=== PATIENT | male | born 1940 | race Asian ===

== ENCOUNTER 2021-09-13 15:08 | Inpatient (IN) | payer OTHER ==
[2021-09-13 18:21] LABS: BASO % 0.8 % (0-2.0); EOS % 2.9 % (0-4.5); HEMATOCRIT 26.2 % (35.4-49); LYMPH % 28.6 % (8-40); MCHC 30.7 g/dl (32.0-35.9); MEAN CELL VOLUME 64.9 fl (80-96); MEAN PLT VOLUME 7.4 fl (7.5-11.1); MONO % 8.5 % (3.8-10.2); NEUT % 59.2 % (42.8-82.8); PLATELET COUNT 243 10^3/uL (134-434); RBC 4.04 M/mm3 (4.00-5.60); RDW 18.4 % (11.9-15.9); WHITE BLOOD COUNT 4.6 K/mm3 (4.0-10.0)
[2021-09-13 18:27] LABS: URINE APPEARANCE CLEAR; URINE BILIRUBIN NEGATIVE (NEGATIVE); URINE COLOR DK YELLOW; URINE GLUCOSE (UA) 3+ (NEGATIVE); URINE KETONE NEGATIVE (NEGATIVE); URINE LEUK ESTERASE NEGATIVE (NEGATIVE); URINE NITRITE NEGATIVE (NEGATIVE); URINE PROTEIN NEGATIVE (NEGATIVE); URINE UROBILINOGEN 0.2 mg/dL (0.2-1.0)
[2021-09-13 18:34] LABS: MCH 19.9 pg (25.7-33.7)
[2021-09-13 18:38] LABS: ALBUMIN 3.4 g/dl (3.4-5.0); BLOOD UREA NITROGEN 14.9 mg/dL (7-18)
[2021-09-13 18:39] LABS: MAGNESIUM 2.2 mg/dL (1.8-2.4)
[2021-09-13 18:41] LABS: BILIRUBIN,TOTAL 0.2 mg/dL (0.2-1); TOT PROT 6.7 g/dl (6.4-8.2)
[2021-09-13 18:42] LABS: PHOSPHOROUS 4.2 mg/dL (2.5-4.9)
[2021-09-13 18:46] LABS: N-TERMINAL BNP 98.6 pg/ml (5-450)
[2021-09-13 19:27] LABS: ANISOCYTOSIS 2+; MACROCYTOSIS 0
[2021-09-13] MEDS ORDERED: MELATONIN 5 MG TABLETS PO ONE (21:44)
[2021-09-13] MEDS ORDERED: PANTOPRAZOLE SODIUM 40 MG/100 ML BAG IVPB ONE (21:54)
[2021-09-13] MEDS ORDERED: MELATONIN 5 MG TABLETS ONE (21:54)
[2021-09-13] MEDS ORDERED: PANTOPRAZOLE SODIUM 40 MG VIAL IVPUSH SCH (22:00)
[2021-09-13 22:30] LABS: IRON SERUM 191 ug/dL (50-175); TOTAL IRON BINDING CAPACITY 472 ug/dL (250-450)
[2021-09-13] MEDS: INSULIN SLIDING SCALE (NOVOLOG) 1 VIAL SQ SCH (22:36)
[2021-09-14 01:06] VITALS: BMI 22.3
[2021-09-14] MEDS: LEVOTHYROXINE NA 100 MCG TABLET (FP) PO SCH (06:29)
[2021-09-14] MEDS: INSULIN SLIDING SCALE (NOVOLOG) 1 VIAL SQ SCH ×4 (06:30→21:43)
[2021-09-14 09:25] LABS: HEMATOCRIT 25.3 % (35.4-49); MCHC 31.6 g/dl (32.0-35.9); MEAN CELL VOLUME 62.6 fl (80-96); MEAN PLT VOLUME 6.7 fl (7.5-11.1); PLATELET COUNT 236 10^3/uL (134-434); RBC 4.04 M/mm3 (4.00-5.60); RDW 18.5 % (11.9-15.9); WHITE BLOOD COUNT 3.6 K/mm3 (4.0-10.0)
[2021-09-14 09:30] LABS: MCH 19.8 pg (25.7-33.7)
[2021-09-14 09:48] LABS: CHLORIDE 107 mmol/L (98-107); SODIUM 140 mmol/L (136-145)
[2021-09-14 09:51] LABS: ALBUMIN 3.1 g/dl (3.4-5.0); ANION GAP 6 MMOL/L (8-16); BLOOD UREA NITROGEN 11.1 mg/dL (7-18); CALCIUM 8.7 mg/dL (8.5-10.1); CO2 27 mmol/L (21-32); GLUCOSE,RANDOM 161 mg/dL (74-106); MAGNESIUM 2.5 mg/dL (1.8-2.4)
[2021-09-14 09:54] LABS: CHOLESTEROL 169 mg/dL (50-200); CREATININE 0.8 mg/dL (0.55-1.3); PHOSPHOROUS 4.7 mg/dL (2.5-4.9); SGOT/AST 10 U/L (15-37); SGPT/ALT 11 U/L (13-61); TRIGLYCERIDES 105 mg/dL (0-150)
[2021-09-14 09:56] LABS: BILIRUBIN,TOTAL 0.2 mg/dL (0.2-1); HDL CHOLESTEROL 62 mg/dL (40-60); TOT PROT 6.1 g/dl (6.4-8.2)
[2021-09-14 09:57] LABS: ALK PHOS 105 U/L (45-117)
[2021-09-14] MEDS: FOLIC ACID 1 MG TABLET (FP) PO SCH (10:00)
[2021-09-14] MEDS: ENOXAPARIN NA (PORCINE) 40 MG/0.4 ML DISP.SYRIN SQ SCH (10:00)
[2021-09-14] MEDS: ASPIRIN COATED 81 MG TABLET.EC PO SCH (10:00)
[2021-09-14] MEDS: PANTOPRAZOLE 40 MG TABLET PO SCH (10:00)
[2021-09-14] MEDS: PARoxetine HCL 20 MG TABLET PO SCH (10:01)
[2021-09-14 10:28] LABS: LDL CHOLESTEROL (ONLY SJRH) 81 mg/dL (5-100)
[2021-09-14 13:47] LABS: LDH 133 U/L (87-246)
[2021-09-14 14:00] LABS: IRON SERUM 18 ug/dL (50-175)
[2021-09-14 14:02] LABS: TOTAL IRON BINDING CAPACITY 414 ug/dL (250-450)
[2021-09-14] MEDS ORDERED: IRON SUCROSE INJECTION 200 MG in SODIUM CHLORIDE 90 ML IVPB ONE (19:00)
[2021-09-14] MEDS: TAMSULOSIN HCL 0.4 MG CAP PO SCH (21:41)
[2021-09-14] MEDS: ATORVASTATIN CA 10 MG TABLET (FP) PO SCH (21:41)
[2021-09-15] MEDS: INSULIN SLIDING SCALE (NOVOLOG) 1 VIAL SQ SCH ×4 (06:02→21:29)
[2021-09-15] MEDS: LEVOTHYROXINE NA 100 MCG TABLET (FP) PO SCH (06:02)
[2021-09-15] MEDS: ASPIRIN COATED 81 MG TABLET.EC PO SCH (09:04)
[2021-09-15] MEDS: ENOXAPARIN NA (PORCINE) 40 MG/0.4 ML DISP.SYRIN SQ SCH (09:04)
[2021-09-15] MEDS: FOLIC ACID 1 MG TABLET (FP) PO SCH (09:04)
[2021-09-15] MEDS: PARoxetine HCL 20 MG TABLET PO SCH (09:05)
[2021-09-15] MEDS: PANTOPRAZOLE 40 MG TABLET PO SCH (09:05)
[2021-09-15 09:54] LABS: HEMATOCRIT 26.5 % (35.4-49); HEMOGLOBIN 8.1 GM/dL (11.7-16.9); MCHC 30.7 g/dl (32.0-35.9); MEAN CELL VOLUME 65.3 fl (80-96); MEAN PLT VOLUME 7.2 fl (7.5-11.1); PLATELET COUNT 238 10^3/uL (134-434); RBC 4.06 M/mm3 (4.00-5.60); RDW 18.7 % (11.9-15.9); WHITE BLOOD COUNT 3.9 K/mm3 (4.0-10.0)
[2021-09-15 10:23] LABS: CALCIUM 8.5 mg/dL (8.5-10.1)
[2021-09-15 10:24] LABS: BLOOD UREA NITROGEN 12.5 mg/dL (7-18)
[2021-09-15 10:27] LABS: CREATININE 0.9 mg/dL (0.55-1.3)
[2021-09-15 10:29] LABS: BILIRUBIN,TOTAL 0.5 mg/dL (0.2-1); TOT PROT 6.1 g/dl (6.4-8.2)
[2021-09-15] MEDS ORDERED: IRON SUCROSE INJECTION 200 MG in SODIUM CHLORIDE 90 ML IVPB ONE (11:37)
[2021-09-15] MEDS: ATORVASTATIN CA 10 MG TABLET (FP) PO SCH (21:26)
[2021-09-15] MEDS: TAMSULOSIN HCL 0.4 MG CAP PO SCH (21:26)
[2021-09-16] MEDS: LEVOTHYROXINE NA 100 MCG TABLET (FP) PO SCH (06:09)
[2021-09-16] MEDS: INSULIN SLIDING SCALE (NOVOLOG) 1 VIAL SQ SCH ×4 (06:50→21:29)
[2021-09-16 08:56] LABS: BASO % 0.9 % (0-2.0); EOS % 3.1 % (0-4.5); HEMATOCRIT 25.2 % (35.4-49); HEMOGLOBIN 7.9 GM/dL (11.7-16.9); LYMPH % 30.9 % (8-40); MCH 20.2 pg (25.7-33.7); MCHC 31.2 g/dl (32.0-35.9); MEAN CELL VOLUME 64.6 fl (80-96); MEAN PLT VOLUME 7.1 fl (7.5-11.1); MONO % 9.7 % (3.8-10.2); NEUT % 55.4 % (42.8-82.8); PLATELET COUNT 220 10^3/uL (134-434); RBC 3.89 M/mm3 (4.00-5.60); RDW 18.5 % (11.9-15.9); WHITE BLOOD COUNT 4.2 K/mm3 (4.0-10.0)
[2021-09-16 09:19] LABS: CALCIUM 8.5 mg/dL (8.5-10.1)
[2021-09-16 09:20] LABS: BLOOD UREA NITROGEN 12.8 mg/dL (7-18)
[2021-09-16 09:23] LABS: CREATININE 0.7 mg/dL (0.55-1.3)
[2021-09-16] MEDS: PARoxetine HCL 20 MG TABLET PO SCH (10:46)
[2021-09-16] MEDS: FOLIC ACID 1 MG TABLET (FP) PO SCH (10:46)
[2021-09-16] MEDS: ASPIRIN COATED 81 MG TABLET.EC PO SCH (10:46)
[2021-09-16] MEDS: ENOXAPARIN NA (PORCINE) 40 MG/0.4 ML DISP.SYRIN SQ SCH (10:46)
[2021-09-16] MEDS: PANTOPRAZOLE 40 MG TABLET PO SCH (10:46)
[2021-09-16] MEDS ORDERED: INSULIN (NOVOLOG) ASPART 100 UNITS/ML 10ML VIAL ONE (11:02)
[2021-09-16] MEDS: ATORVASTATIN CA 10 MG TABLET (FP) PO SCH (21:28)
[2021-09-16] MEDS: TAMSULOSIN HCL 0.4 MG CAP PO SCH (21:28)
[2021-09-17] MEDS: LEVOTHYROXINE NA 100 MCG TABLET (FP) PO SCH (06:32)
[2021-09-17] MEDS: INSULIN SLIDING SCALE (NOVOLOG) 1 VIAL SQ SCH ×4 (06:33→21:24)
[2021-09-17] MEDS ORDERED: IRON SUCROSE INJECTION 200 MG in SODIUM CHLORIDE 90 ML IVPB ONE (08:00)
[2021-09-17] MEDS ORDERED: PT OWN MED DRAWER 7, Y5N ONE (10:24)
[2021-09-17] MEDS: ASPIRIN COATED 81 MG TABLET.EC PO SCH (10:31)
[2021-09-17] MEDS: PANTOPRAZOLE 40 MG TABLET PO SCH (10:31)
[2021-09-17] MEDS: FOLIC ACID 1 MG TABLET (FP) PO SCH (10:31)
[2021-09-17] MEDS: PARoxetine HCL 20 MG TABLET PO SCH (10:31)
[2021-09-17] MEDS: ENOXAPARIN NA (PORCINE) 40 MG/0.4 ML DISP.SYRIN SQ SCH (10:32)
[2021-09-17] MEDS ORDERED: INSULIN (NOVOLOG) ASPART 100 UNITS/ML 10ML VIAL ONE (20:34)
[2021-09-17] MEDS: TAMSULOSIN HCL 0.4 MG CAP PO SCH (21:21)
[2021-09-17] MEDS: ATORVASTATIN CA 10 MG TABLET (FP) PO SCH (21:21)
[2021-09-18] MEDS: INSULIN SLIDING SCALE (NOVOLOG) 1 VIAL SQ SCH ×2 (06:08→12:35)
[2021-09-18] MEDS: LEVOTHYROXINE NA 100 MCG TABLET (FP) PO SCH (06:09)
[2021-09-18 06:41] VITALS: BP 135/66; PULSE 90; TEMP 98.7
[2021-09-18] MEDS ORDERED: PT OWN MED DRAWER 7, Y5N ONE (09:57)
[2021-09-18] MEDS: PANTOPRAZOLE 40 MG TABLET PO SCH (10:02)
[2021-09-18] MEDS: ENOXAPARIN NA (PORCINE) 40 MG/0.4 ML DISP.SYRIN SQ SCH (10:02)
[2021-09-18] MEDS: ASPIRIN COATED 81 MG TABLET.EC PO SCH (10:02)
[2021-09-18] MEDS: FOLIC ACID 1 MG TABLET (FP) PO SCH (10:02)
[2021-09-18] MEDS: PARoxetine HCL 20 MG TABLET PO SCH (10:02)
[2021-09-18 10:30] LABS: ALBUMIN 2.9 g/dl (3.4-5.0); BLOOD UREA NITROGEN 11.1 mg/dL (7-18); CALCIUM 8.9 mg/dL (8.5-10.1); MAGNESIUM 2.3 mg/dL (1.8-2.4)
[2021-09-18 12:05] LABS: BILIRUBIN,TOTAL 0.6 mg/dL (0.2-1); CREATININE 0.9 mg/dL (0.55-1.3); PHOSPHOROUS 2.9 mg/dL (2.5-4.9)
== END 2021-09-18 14:51 | disposition home health service (06) | DRG 812 ==
LOC: JER 15:08 → JERBED 20:59 → J8W 09-14 00:35
PROVIDERS: ADMIT Internal Medicine; ATTEND Internal Medicine
DX: D50.9 Iron deficiency anemia, unspecified (principal); I10 Essential (primary) hypertension; N40.0 Benign prostatic hyperplasia without lower urinary tract symptoms; E03.9 Hypothyroidism, unspecified; E78.5 Hyperlipidemia, unspecified; F17.210 Nicotine dependence, cigarettes, uncomplicated; M43.10 Spondylolisthesis, site unspecified; M41.9 Scoliosis, unspecified; E11.65 Type 2 diabetes mellitus with hyperglycemia; F41.9 Anxiety disorder, unspecified; W18.39XA Other fall on same level, initial encounter; Y92.098 Other place in other non-institutional residence as the place of occurrence of the external cause
CPT/HCPCS: 36415; 70450-TC; 71045-TC-FY; 72125-TC; 80048; 80053; 80061; 81003; 82272; 82550; 82728; 82962; 83036; 83540; 83550; 83615; 83735; 83880; 84100; 84443; 84484; 85025; 85027; 85045; 86850; 86900; 86901; 87086; 93005; 93010; 93880-TC; 97116-GP; 99285-25; C9803; J1756; U0003; U0005

== ENCOUNTER 2023-03-29 19:48 | Emergency (ER) | payer OTHER ==
[2023-03-29 19:54] VITALS: RESP 18; BMI 25.8
[2023-03-29] MEDS ORDERED: LIDOCAINE 5% TOPICAL PATCH TP ONE (20:07)
[2023-03-29] MEDS ORDERED: ACETAMINOPHEN 500 MG TABLET (FP) PO ONE (20:07)
[2023-03-29] MEDS ORDERED: LIDOCAINE 5% TOPICAL PATCH ONE (20:11)
[2023-03-29] MEDS ORDERED: ACETAMINOPHEN 325 MG TABLET (FP) ONE (20:11)
[2023-03-29] MEDS ORDERED: LIDOCAINE PATCH REMOVAL MC SCH (22:00)
[2023-03-30 01:34] VITALS: BP 168/66; PULSE 64; TEMP 97
== END 2023-03-30 02:39 | disposition home or self-care (01) ==
LOC: JER 19:48
DX: M54.50 Low back pain, unspecified (principal); Y30.XXXA Falling, jumping or pushed from a high place, undetermined intent, initial encounter; Y02.8XXA Assault by pushing or placing victim in front of other moving object, initial encounter
CPT/HCPCS: 70450-TC; 72125-TC; 72170-TC-FY; 99283-25

== ENCOUNTER 2023-10-11 07:51 | Inpatient (IN) | payer OTHER ==
[2023-10-11] MEDS ORDERED: ACETAMINOPHEN 1000 MG/100 ML BAG IVPB ONE (08:14)
[2023-10-11] MEDS ORDERED: SODIUM CHLORIDE 1,000 ML IV STA (08:17)
[2023-10-11] MEDS ORDERED: CEFTRIAXONE 1,000 MG in DEXTROSE 5%-WATER - 50 ML IVPB ONE (08:17)
[2023-10-11] MEDS ORDERED: CEFTRIAXONE 1 GM/50 ML BAG ONE (08:41)
[2023-10-11] MEDS ORDERED: ACETAMINOPHEN INJECTION 100 ML IVPB ONE (08:41)
[2023-10-11 08:46] LABS: VENOUS BASE EXCESS 0.9 mmol/L (-2-2); VENOUS O2 SATURATION 58.8 % (70-80); VENOUS PCO2 41.7 mmHg (38-52); VENOUS PH 7.407 (7.310-7.410)
[2023-10-11 08:48] LABS: BASO % 0.4 % (0-2.0); EOS % 0.3 % (0-4.5); HEMATOCRIT 37.1 % (35.4-49); HEMOGLOBIN 12.4 GM/dL (11.7-16.9); LYMPH % 8.2 % (8-40); MCH 28.6 pg (25.7-33.7); MCHC 33.5 g/dl (32.0-35.9); MEAN CELL VOLUME 85.4 fl (80-96); MEAN PLT VOLUME 7.5 fl (7.5-11.1); MONO % 1.6 % (3.8-10.2); NEUT % 89.5 % (42.8-82.8); PLATELET COUNT 198 10^3/uL (134-434); RBC 4.34 M/mm3 (4.00-5.60); RDW 13.5 % (11.9-15.9); WHITE BLOOD COUNT 6.5 K/mm3 (4.0-10.0)
[2023-10-11 09:01] LABS: INR 1.04 (0.83-1.09); PROTHROMBIN TIME (PATIENT) 12.1 SEC (9.7-13.0)
[2023-10-11 09:04] LABS: ACTIVATED PTT 25.7 SECONDS (25.2-36.5)
[2023-10-11 09:07] LABS: POTASSIUM 3.7 mmol/L (3.5-5.1)
[2023-10-11 09:09] LABS: ALBUMIN 3.6 g/dl (3.4-5.0); BLOOD UREA NITROGEN 8.3 mg/dL (7-18); CALCIUM 8.8 mg/dL (8.5-10.1)
[2023-10-11 09:10] LABS: EPI CELLS 3 /uL (0-25.1); HYALINE CASTS 0 /uL (0-3.1); URINE APPEARANCE CLEAR; URINE BACTERIA 0 /uL (0-1359); URINE BILIRUBIN NEGATIVE (NEGATIVE); URINE COLOR YELLOW; URINE GLUCOSE (UA) 1+ (NEGATIVE); URINE KETONE NEGATIVE (NEGATIVE); URINE LEUK ESTERASE NEGATIVE (NEGATIVE); URINE NITRITE NEGATIVE (NEGATIVE); URINE PROTEIN 1+ (NEGATIVE); URINE RBC 51 /uL (0-23.9); URINE UROBILINOGEN 0.2 mg/dL (0.2-1.0); URINE WBC 6 /uL (0-25.8)
[2023-10-11 09:14] LABS: BILIRUBIN,TOTAL 0.4 mg/dL (0.2-1); TOT PROT 6.9 g/dl (6.4-8.2)
[2023-10-11 09:26] LABS: LACTIC ACID 2.4 mmol/L (0.4-2.0)
[2023-10-11] MEDS ORDERED: LACTATED RINGERS SOLUTION 1000 ML INFUS.BAG IV ONE (09:36)
[2023-10-11] MEDS ORDERED: AZITHROMYCIN IVPB 500 MG in DEXTROSE 5%-WATER - 250 ML IVPB ONE (10:33)
[2023-10-11] MEDS ORDERED: ACETAMINOPHEN 500 MG TABLET (FP) PO PRN (10:58)
[2023-10-11] MEDS ORDERED: AZITHROMYCIN IVPB 500 MG/250 ML BAG IVPB ONE (11:04)
[2023-10-11 12:32] VITALS: BMI 22.2
[2023-10-11] MEDS: PANTOPRAZOLE 20 MG TABLET PO SCH (13:01)
[2023-10-11] MEDS: FOLIC ACID 1 MG TABLET (FP) PO SCH (13:01)
[2023-10-11] MEDS: INSULIN SLIDING SCALE (NOVOLOG) 1 VIAL SQ SCH (16:50)
[2023-10-11 17:01] LABS: LACTIC ACID 2.4 mmol/L (0.4-2.0)
[2023-10-11] MEDS ORDERED: SODIUM CHLORIDE 1,000 ML IV SCH (19:15)
[2023-10-11] MEDS: ATORVASTATIN CA 10 MG TABLET (FP) PO SCH (21:51)
[2023-10-11] MEDS: TAMSULOSIN HCL 0.4 MG CAP PO SCH (21:51)
[2023-10-11] MEDS: MAG HYDROX/AL HYDROX/SIMETH 30 ML UNIT-DOSE CUP PO SCH (21:52)
[2023-10-12] MEDS: LEVOTHYROXINE NA 100 MCG TABLET (FP) PO SCH (06:42)
[2023-10-12] MEDS: INSULIN SLIDING SCALE (NOVOLOG) 1 VIAL SQ SCH ×3 (06:43→16:54)
[2023-10-12 09:17] LABS: HEMATOCRIT 31.1 % (35.4-49); HEMOGLOBIN 10.2 GM/dL (11.7-16.9); MCH 28.4 pg (25.7-33.7); MCHC 32.8 g/dl (32.0-35.9); MEAN CELL VOLUME 86.7 fl (80-96); MEAN PLT VOLUME 8.2 fl (7.5-11.1); PLATELET COUNT 169 10^3/uL (134-434); RBC 3.58 M/mm3 (4.00-5.60); RDW 13.6 % (11.9-15.9); WHITE BLOOD COUNT 17.9 K/mm3 (4.0-10.0)
[2023-10-12 09:23] LABS: POTASSIUM 3.6 mmol/L (3.5-5.1)
[2023-10-12 09:30] LABS: BLOOD UREA NITROGEN 16.7 mg/dL (7-18)
[2023-10-12 09:33] LABS: CREATININE 0.9 mg/dL (0.55-1.3)
[2023-10-12] MEDS: ENOXAPARIN NA (PORCINE) 40 MG/0.4 ML DISP.SYRIN SQ SCH (10:19)
[2023-10-12] MEDS: MAG HYDROX/AL HYDROX/SIMETH 30 ML UNIT-DOSE CUP PO SCH ×2 (10:19→21:53)
[2023-10-12] MEDS: ESCITALOPRAM OXALATE 10 MG TABLET PO SCH (10:20)
[2023-10-12] MEDS: FOLIC ACID 1 MG TABLET (FP) PO SCH (10:20)
[2023-10-12] MEDS: ASPIRIN COATED 81 MG TABLET.EC PO SCH (10:20)
[2023-10-12] MEDS: PANTOPRAZOLE 20 MG TABLET PO SCH (10:20)
[2023-10-12] MEDS: CEFTRIAXONE 1 GM in DEXTROSE 5%-WATER - 50 ML IVPB SCH (10:21)
[2023-10-12 11:00] LABS: ANISOCYTOSIS 0; HELMET CELLS 0; HOWELL-JOLLY BODIES 0; MACROCYTOSIS 0; OVALOCYTE 0; ROULEAU 0; SICKELED CELLS 0; TARGET CELLS 0; TEAR DROP CELLS 0; TOXIC GRANULATION 0
[2023-10-12] MEDS: AZITHROMYCIN IVPB 500 MG/250 ML BAG IVPB SCH (11:04)
[2023-10-12] MEDS: ATORVASTATIN CA 10 MG TABLET (FP) PO SCH (21:53)
[2023-10-12] MEDS: TAMSULOSIN HCL 0.4 MG CAP PO SCH (21:53)
[2023-10-13] MEDS: LEVOTHYROXINE NA 100 MCG TABLET (FP) PO SCH (06:05)
[2023-10-13] MEDS: INSULIN SLIDING SCALE (NOVOLOG) 1 VIAL SQ SCH ×3 (06:05→17:12)
[2023-10-13] MEDS: PANTOPRAZOLE 20 MG TABLET PO SCH (09:19)
[2023-10-13] MEDS: AZITHROMYCIN IVPB 500 MG/250 ML BAG IVPB SCH (09:19)
[2023-10-13] MEDS: FOLIC ACID 1 MG TABLET (FP) PO SCH (09:19)
[2023-10-13] MEDS: ASPIRIN COATED 81 MG TABLET.EC PO SCH (09:19)
[2023-10-13] MEDS: CEFTRIAXONE 1 GM in DEXTROSE 5%-WATER - 50 ML IVPB SCH (09:19)
[2023-10-13] MEDS: MAG HYDROX/AL HYDROX/SIMETH 30 ML UNIT-DOSE CUP PO SCH ×2 (09:19→23:14)
[2023-10-13] MEDS: ENOXAPARIN NA (PORCINE) 40 MG/0.4 ML DISP.SYRIN SQ SCH (09:20)
[2023-10-13] MEDS: ESCITALOPRAM OXALATE 10 MG TABLET PO SCH (09:20)
[2023-10-13] MEDS ORDERED: ALBUTEROL SO4 HFA INHALER IH PRN (11:50)
[2023-10-13 13:16] LABS: BASO % 0.4 % (0-2.0); EOS % 0.9 % (0-4.5); HEMATOCRIT 34.2 % (35.4-49); HEMOGLOBIN 11.3 GM/dL (11.7-16.9); LYMPH % 13.6 % (8-40); MCH 28.1 pg (25.7-33.7); MEAN CELL VOLUME 85.4 fl (80-96); MEAN PLT VOLUME 8.1 fl (7.5-11.1); MONO % 2.4 % (3.8-10.2); NEUT % 82.7 % (42.8-82.8); PLATELET COUNT 178 10^3/uL (134-434); RDW 13.6 % (11.9-15.9); WHITE BLOOD COUNT 15.2 K/mm3 (4.0-10.0)
[2023-10-13 13:46] LABS: POTASSIUM 3.4 mmol/L (3.5-5.1)
[2023-10-13 13:48] LABS: CALCIUM 8.4 mg/dL (8.5-10.1)
[2023-10-13 13:50] LABS: BLOOD UREA NITROGEN 11.9 mg/dL (7-18)
[2023-10-13 13:52] LABS: CREATININE 0.8 mg/dL (0.55-1.3)
[2023-10-13 13:54] LABS: BILIRUBIN,TOTAL 0.4 mg/dL (0.2-1); TOT PROT 6.1 g/dl (6.4-8.2)
[2023-10-13 13:56] LABS: ALBUMIN 2.8 g/dl (3.4-5.0)
[2023-10-13] MEDS: ATORVASTATIN CA 10 MG TABLET (FP) PO SCH (23:14)
[2023-10-13] MEDS: TAMSULOSIN HCL 0.4 MG CAP PO SCH (23:14)
[2023-10-14] MEDS: INSULIN SLIDING SCALE (NOVOLOG) 1 VIAL SQ SCH ×2 (06:27→11:01)
[2023-10-14] MEDS: LEVOTHYROXINE NA 100 MCG TABLET (FP) PO SCH (06:29)
[2023-10-14 08:36] VITALS: RESP 18
[2023-10-14 09:18] LABS: BASO % 0.4 % (0-2.0); EOS % 1.2 % (0-4.5); HEMATOCRIT 31.7 % (35.4-49); HEMOGLOBIN 10.7 GM/dL (11.7-16.9); LYMPH % 18.9 % (8-40); MCH 28.5 pg (25.7-33.7); MCHC 33.8 g/dl (32.0-35.9); MEAN CELL VOLUME 84.3 fl (80-96); MEAN PLT VOLUME 8.2 fl (7.5-11.1); MONO % 4.8 % (3.8-10.2); NEUT % 74.7 % (42.8-82.8); PLATELET COUNT 184 10^3/uL (134-434); RBC 3.76 M/mm3 (4.00-5.60); RDW 13.1 % (11.9-15.9); WHITE BLOOD COUNT 9.7 K/mm3 (4.0-10.0)
[2023-10-14 09:21] LABS: POTASSIUM 3.5 mmol/L (3.5-5.1)
[2023-10-14 09:23] LABS: ALBUMIN 2.5 g/dl (3.4-5.0); BLOOD UREA NITROGEN 7.9 mg/dL (7-18); CALCIUM 7.7 mg/dL (8.5-10.1); MAGNESIUM 2.3 mg/dL (1.8-2.4)
[2023-10-14] MEDS: CEFTRIAXONE 1 GM in DEXTROSE 5%-WATER - 50 ML IVPB SCH (09:25)
[2023-10-14] MEDS: ENOXAPARIN NA (PORCINE) 40 MG/0.4 ML DISP.SYRIN SQ SCH (09:25)
[2023-10-14 09:26] LABS: PHOSPHOROUS 2.8 mg/dL (2.5-4.9)
[2023-10-14] MEDS: MAG HYDROX/AL HYDROX/SIMETH 30 ML UNIT-DOSE CUP PO SCH (09:26)
[2023-10-14] MEDS: FOLIC ACID 1 MG TABLET (FP) PO SCH (09:26)
[2023-10-14] MEDS: ESCITALOPRAM OXALATE 10 MG TABLET PO SCH (09:26)
[2023-10-14] MEDS: ASPIRIN COATED 81 MG TABLET.EC PO SCH (09:26)
[2023-10-14] MEDS: PANTOPRAZOLE 20 MG TABLET PO SCH (09:26)
[2023-10-14 09:27] LABS: TOT PROT 5.7 g/dl (6.4-8.2)
[2023-10-14 09:28] LABS: BILIRUBIN,TOTAL 0.5 mg/dL (0.2-1); CREATININE 0.7 mg/dL (0.55-1.3)
[2023-10-14] MEDS ORDERED: LIP BALM (CHAPSTICK) TP PRN (10:01)
[2023-10-14] MEDS: AZITHROMYCIN IVPB 500 MG/250 ML BAG IVPB SCH (11:06)
[2023-10-14] MEDS ORDERED: ZINC OXIDE 20% TOPICAL OINTMENT 30 GM TUBE TP SCH (11:45)
[2023-10-14] MEDS ORDERED: valACYclovir HCL 500 MG TABLET (FP) PO ONE (11:47)
[2023-10-14 15:25] VITALS: BP 134/87; PULSE 76; TEMP 99.2
== END 2023-10-14 16:58 | DRG 871 ==
LOC: JER 07:51 → JERBED 10:42 → J5S 11:36 → JERBED 10-12 07:47 → J5S 10-12 07:50
PROVIDERS: ADMIT Internal Medicine; ATTEND Internal Medicine
DX: A41.89 Other specified sepsis (principal); J13 Pneumonia due to Streptococcus pneumoniae; E87.20 Acidosis, unspecified; E78.5 Hyperlipidemia, unspecified; E11.9 Type 2 diabetes mellitus without complications; E03.9 Hypothyroidism, unspecified; I10 Essential (primary) hypertension; N40.0 Benign prostatic hyperplasia without lower urinary tract symptoms; R00.0 Tachycardia, unspecified; E86.0 Dehydration; K21.9 Gastro-esophageal reflux disease without esophagitis; D72.829 Elevated white blood cell count, unspecified; B00.1 Herpesviral vesicular dermatitis
CPT/HCPCS: 0241U-QW; 36415; 71045-TC-FY; 80048; 80053; 81003; 82803; 82962; 83605; 83735; 84100; 84484; 85025; 85610; 85730; 86850; 86900; 86901; 87040; 87086; 87899; 93005; 93010; 94761; 97116-GP; 97161-GP; 99285-25

== ENCOUNTER 2024-04-07 23:13 | Inpatient (IN) | payer OTHER ==
[2024-04-08] MEDS ORDERED: ONDANSETRON 4 MG/2 ML VIAL ONE (00:15)
[2024-04-08] MEDS ORDERED: PANTOPRAZOLE SODIUM 40 MG VIAL ONE (00:15)
[2024-04-08] MEDS ORDERED: ACETAMINOPHEN INJECTION 100 ML IVPB ONE ×3 (00:15→17:22)
[2024-04-08] MEDS: ACETAMINOPHEN 1000 MG/100 ML BAG IVPB ONE ×2 (00:33→08:50)
[2024-04-08] MEDS: SODIUM CHLORIDE 0.9% 1000 ML INFUS.BAG IV ONE (00:33)
[2024-04-08] MEDS: PANTOPRAZOLE SODIUM 40 MG VIAL IVPUSH ONE (00:34)
[2024-04-08] MEDS: ONDANSETRON 4 MG/2 ML VIAL IVPUSH ONE (00:34)
[2024-04-08 00:49] LABS: BASO % 0.3 % (0-2.0); EOS % 0.1 % (0-4.5); HEMATOCRIT 36.1 % (35.4-49); HEMOGLOBIN 11.9 GM/dL (11.7-16.9); LYMPH % 9.1 % (8-40); MCHC 32.9 g/dl (32.0-35.9); MEAN CELL VOLUME 85.3 fl (80-96); MEAN PLT VOLUME 7.7 fl (7.5-11.1); MONO % 4.3 % (3.8-10.2); NEUT % 86.2 % (42.8-82.8); PLATELET COUNT 216 10^3/uL (134-434); RBC 4.24 M/mm3 (4.00-5.60); RDW 13.7 % (11.9-15.9); WHITE BLOOD COUNT 12.8 K/mm3 (4.0-10.0)
[2024-04-08 01:01] LABS: INR 1.04 (0.83-1.09); PROTHROMBIN TIME (PATIENT) 11.7 SEC (9.7-13.0)
[2024-04-08 01:03] LABS: ACTIVATED PTT 32.2 SECONDS (25.2-36.5)
[2024-04-08 01:26] LABS: LACTIC ACID 2.1 mmol/L (0.4-2.0)
[2024-04-08 01:30] LABS: POTASSIUM 3.3 mmol/L (3.5-5.1)
[2024-04-08 01:33] LABS: CALCIUM 9.2 mg/dL (8.5-10.1); MAGNESIUM 1.9 mg/dL (1.8-2.4)
[2024-04-08 01:34] LABS: ALBUMIN 3.7 g/dl (3.4-5.0)
[2024-04-08 01:36] LABS: CREATININE 0.7 mg/dL (0.55-1.3)
[2024-04-08 01:38] LABS: BILIRUBIN,TOTAL 0.5 mg/dL (0.2-1); TOT PROT 6.9 g/dl (6.4-8.2)
[2024-04-08] MEDS ORDERED: MAGNESIUM 1GM/D5W - 1 GM/100 ML IVPB IVPB ONE (02:15)
[2024-04-08 02:40] LABS: URINE APPEARANCE CLEAR; URINE BILIRUBIN NEGATIVE (NEGATIVE); URINE COLOR YELLOW; URINE GLUCOSE (UA) 2+ (NEGATIVE); URINE KETONE 1+ (NEGATIVE); URINE LEUK ESTERASE NEGATIVE (NEGATIVE); URINE NITRITE NEGATIVE (NEGATIVE); URINE PROTEIN NEGATIVE (NEGATIVE); URINE UROBILINOGEN 0.2 mg/dL (0.2-1.0)
[2024-04-08] MEDS: MAGNESIUM SULF 50% (8.12 MEQ/2 ML-1 GM VIAL) IVPB ONE (02:42)
[2024-04-08] MEDS: KCL 10 MEQ IVPB 10 MEQ/100 ML INFUS.BAG IVPB SCH (02:42)
[2024-04-08] MEDS ORDERED: KCL 10 MEQ IVPB 10 MEQ/100 ML INFUS.BAG IVPB ONE (04:59)
[2024-04-08] MEDS ORDERED: TRIMETHOBENZAMIDE HCL 200MG/2ML INJ IM PRN (11:43)
[2024-04-08] MEDS ORDERED: morphine SULFATE 4 MG/ML VIAL IVPUSH PRN (11:45)
[2024-04-08] MEDS ORDERED: ARTIFICIAL TEARS OPHTHALMIC DROPS OU PRN (11:53)
[2024-04-08] MEDS: LACTATED RINGERS SOLUTION 1,000 ML IV SCH (12:06)
[2024-04-08] MEDS ORDERED: LEVOTHYROXINE NA 100 MCG TABLET (FP) ONE (12:36)
[2024-04-08] MEDS ORDERED: ESCITALOPRAM OXALATE 10 MG TABLET ONE (12:36)
[2024-04-08] MEDS: LEVOTHYROXINE NA 100 MCG TABLET (FP) PO SCH (12:39)
[2024-04-08] MEDS: ESCITALOPRAM OXALATE 10 MG TABLET PO SCH (12:39)
[2024-04-08] MEDS ORDERED: INSULIN ASPART SLIDING SCALE (NOVOLOG) 1 VIAL SQ SCH (16:30)
[2024-04-08] MEDS: INSULIN ASPART SLIDING SCALE (NOVOLOG) 1 VIAL SQ SCH (16:58)
[2024-04-08] MEDS: ACETAMINOPHEN 1000 MG/100 ML BAG IVPB PRN (17:24)
[2024-04-08 20:21] VITALS: BMI 21.1
[2024-04-08] MEDS: AMPICILLIN NA/SULBACTAM NA 3 GM in SODIUM CHLORIDE 100 ML IVPB SCH (21:11)
[2024-04-08] MEDS: TAMSULOSIN HCL 0.4 MG CAP PO SCH (21:13)
[2024-04-08] MEDS: ATORVASTATIN CA 10 MG TABLET (FP) PO SCH (21:13)
[2024-04-08] MEDS: DONEPEZIL HCL 5 MG TABLET (FP) PO SCH (21:20)
[2024-04-09 09:01] LABS: BASO % 0.5 % (0-2.0); EOS % 2.1 % (0-4.5); HEMATOCRIT 30.2 % (35.4-49); HEMOGLOBIN 9.9 GM/dL (11.7-16.9); LYMPH % 20.4 % (8-40); MCH 28.1 pg (25.7-33.7); MCHC 32.7 g/dl (32.0-35.9); MEAN CELL VOLUME 86.1 fl (80-96); MEAN PLT VOLUME 8.1 fl (7.5-11.1); MONO % 8.6 % (3.8-10.2); NEUT % 68.4 % (42.8-82.8); PLATELET COUNT 182 10^3/uL (134-434); RBC 3.51 M/mm3 (4.00-5.60); RDW 13.3 % (11.9-15.9); WHITE BLOOD COUNT 7.6 K/mm3 (4.0-10.0)
[2024-04-09 09:16] LABS: POTASSIUM 3.5 mmol/L (3.5-5.1)
[2024-04-09 09:22] LABS: BLOOD UREA NITROGEN 12.7 mg/dL (7-18); MAGNESIUM 2.1 mg/dL (1.8-2.4)
[2024-04-09 09:25] LABS: CREATININE 0.7 mg/dL (0.55-1.3); PHOSPHOROUS 2.5 mg/dL (2.5-4.9)
[2024-04-09 09:26] LABS: BILIRUBIN,TOTAL 0.6 mg/dL (0.2-1); TOT PROT 5.5 g/dl (6.4-8.2)
[2024-04-09 09:36] LABS: ALBUMIN 2.6 g/dl (3.4-5.0); CALCIUM 7.7 mg/dL (8.5-10.1)
[2024-04-09 15:41] VITALS: RESP 18
[2024-04-10 08:53] LABS: BASO % 0.8 % (0-2.0); HEMATOCRIT 31.8 % (35.4-49); HEMOGLOBIN 10.6 GM/dL (11.7-16.9); LYMPH % 22.6 % (8-40); MCH 28.5 pg (25.7-33.7); MCHC 33.4 g/dl (32.0-35.9); MEAN CELL VOLUME 85.3 fl (80-96); MONO % 6.7 % (3.8-10.2); NEUT % 64.9 % (42.8-82.8); PLATELET COUNT 198 10^3/uL (134-434); RBC 3.72 M/mm3 (4.00-5.60); RDW 13.4 % (11.9-15.9); WHITE BLOOD COUNT 5.9 K/mm3 (4.0-10.0)
[2024-04-10 08:54] LABS: INR 1.04 (0.83-1.09)
[2024-04-10 09:08] LABS: POTASSIUM 3.6 mmol/L (3.5-5.1)
[2024-04-10 09:09] LABS: POTASSIUM 3.2 mmol/L (3.5-5.1)
[2024-04-10 09:19] LABS: CALCIUM 8.1 mg/dL (8.5-10.1)
[2024-04-10 09:20] LABS: BLOOD UREA NITROGEN 7.3 mg/dL (7-18)
[2024-04-10 09:23] LABS: CREATININE 0.6 mg/dL (0.55-1.3)
[2024-04-10 09:25] LABS: ALBUMIN 2.5 g/dl (3.4-5.0); BLOOD UREA NITROGEN 7.2 mg/dL (7-18); CALCIUM 7.7 mg/dL (8.5-10.1)
[2024-04-10 09:28] LABS: CREATININE 0.6 mg/dL (0.55-1.3)
[2024-04-10 09:30] LABS: BILIRUBIN,TOTAL 0.4 mg/dL (0.2-1); TOT PROT 5.4 g/dl (6.4-8.2)
[2024-04-10] MEDS: POTASSIUM CHLORIDE TABS 20 MEQ TABLET.ER (FP) PO SCH (11:40)
[2024-04-10] MEDS: PANTOPRAZOLE SODIUM 40 MG VIAL IVPUSH SCH (11:40)
[2024-04-10] MEDS: KCL 10 MEQ IVPB 10 MEQ/100 ML INFUS.BAG IVPB SCH (11:41)
[2024-04-11 08:12] LABS: CHLORIDE 108 mmol/L (98-107); POTASSIUM 3.5 mmol/L (3.5-5.1); SODIUM 141 mmol/L (136-145)
[2024-04-11 08:15] LABS: BASO % 0.7 % (0-2.0); EOS % 4.6 % (0-4.5); HEMATOCRIT 33.1 % (35.4-49); HEMOGLOBIN 11.2 GM/dL (11.7-16.9); LYMPH % 30.1 % (8-40); MCH 28.5 pg (25.7-33.7); MCHC 33.8 g/dl (32.0-35.9); MEAN CELL VOLUME 84.5 fl (80-96); MEAN PLT VOLUME 7.8 fl (7.5-11.1); MONO % 7.7 % (3.8-10.2); NEUT % 56.9 % (42.8-82.8); PLATELET COUNT 219 10^3/uL (134-434); RBC 3.91 M/mm3 (4.00-5.60); WHITE BLOOD COUNT 4.8 K/mm3 (4.0-10.0)
[2024-04-11 08:25] LABS: ANION GAP 6 mmol/L (4-13); CALCIUM 8.8 mg/dL (8.5-10.1); CO2 28 mmol/L (21-32); GLUCOSE,RANDOM 147 mg/dL (74-106); MAGNESIUM 1.9 mg/dL (1.8-2.4)
[2024-04-11 08:29] LABS: BLOOD UREA NITROGEN 2.6 mg/dL (7-18); CREATININE 0.6 mg/dL (0.55-1.3)
[2024-04-12 09:26] LABS: BASO % 0.9 % (0-2.0); EOS % 4.2 % (0-4.5); HEMATOCRIT 34.8 % (35.4-49); HEMOGLOBIN 11.6 GM/dL (11.7-16.9); LYMPH % 38.9 % (8-40); MCH 28.2 pg (25.7-33.7); MCHC 33.3 g/dl (32.0-35.9); MEAN CELL VOLUME 84.7 fl (80-96); MEAN PLT VOLUME 7.6 fl (7.5-11.1); MONO % 9.3 % (3.8-10.2); NEUT % 46.7 % (42.8-82.8); PLATELET COUNT 254 10^3/uL (134-434); RBC 4.11 M/mm3 (4.00-5.60); WHITE BLOOD COUNT 4.2 K/mm3 (4.0-10.0)
[2024-04-12 09:44] LABS: POTASSIUM 3.2 mmol/L (3.5-5.1)
[2024-04-12 09:51] LABS: CALCIUM 8.5 mg/dL (8.5-10.1)
[2024-04-12 09:55] LABS: CREATININE 0.7 mg/dL (0.55-1.3)
[2024-04-12] MEDS: MAGNESIUM CITRATE 300 ML BOTTLE PO ONE (11:54)
[2024-04-12] MEDS: PEG 3350/NA SULF BICARB CL/KCL 4000 ML SOLN.RECON PO ONE (15:23)
[2024-04-13 07:58] LABS: BASO % 0.8 % (0-2.0); EOS % 5.5 % (0-4.5); HEMATOCRIT 34.6 % (35.4-49); HEMOGLOBIN 11.5 GM/dL (11.7-16.9); LYMPH % 41.8 % (8-40); MCHC 33.2 g/dl (32.0-35.9); MEAN CELL VOLUME 84.5 fl (80-96); MEAN PLT VOLUME 7.4 fl (7.5-11.1); MONO % 10.4 % (3.8-10.2); NEUT % 41.5 % (42.8-82.8); PLATELET COUNT 255 10^3/uL (134-434); RBC 4.09 M/mm3 (4.00-5.60); RDW 12.7 % (11.9-15.9); WHITE BLOOD COUNT 4.7 K/mm3 (4.0-10.0)
[2024-04-13 08:05] LABS: CHLORIDE 109 mmol/L (98-107); POTASSIUM 3.7 mmol/L (3.5-5.1); SODIUM 144 mmol/L (136-145)
[2024-04-13 08:12] LABS: CREATININE 0.7 mg/dL (0.55-1.3); SGPT/ALT 12 U/L (13-61)
[2024-04-13 08:13] LABS: ANION GAP 7 mmol/L (4-13); CO2 28 mmol/L (21-32); GLUCOSE,RANDOM 125 mg/dL (74-106)
[2024-04-13 08:14] LABS: BILIRUBIN,TOTAL 0.3 mg/dL (0.2-1); TOT PROT 6.3 g/dl (6.4-8.2)
[2024-04-13 08:15] LABS: ALK PHOS 79 U/L (45-117); CALCIUM 8.6 mg/dL (8.5-10.1)
[2024-04-13 08:16] LABS: SGOT/AST 12 U/L (15-37)
[2024-04-13 08:26] LABS: BLOOD UREA NITROGEN 2.9 mg/dL (7-18)
[2024-04-13] MEDS: LACTATED RINGERS SOLUTION 1,000 ML IV SCH (09:08)
[2024-04-13] MEDS: FOLIC ACID 1 MG TABLET (FP) PO SCH (09:54)
[2024-04-13] MEDS ORDERED: MAG HYDROX/AL HYDROX/SIMETH -MYLANTA- ORAL SUSPENSION PO PRN (10:00)
[2024-04-14 07:58] LABS: BASO % 0.9 % (0-2.0); EOS % 4.4 % (0-4.5); HEMATOCRIT 33.9 % (35.4-49); HEMOGLOBIN 11.5 GM/dL (11.7-16.9); LYMPH % 34.3 % (8-40); MCH 28.3 pg (25.7-33.7); MCHC 33.9 g/dl (32.0-35.9); MEAN CELL VOLUME 83.5 fl (80-96); MEAN PLT VOLUME 7.3 fl (7.5-11.1); MONO % 8.4 % (3.8-10.2); PLATELET COUNT 264 10^3/uL (134-434); RBC 4.06 M/mm3 (4.00-5.60); RDW 13.1 % (11.9-15.9)
[2024-04-14 08:00] LABS: CHLORIDE 110 mmol/L (98-107); POTASSIUM 3.5 mmol/L (3.5-5.1); SODIUM 145 mmol/L (136-145)
[2024-04-14 08:11] LABS: CALCIUM 8.4 mg/dL (8.5-10.1); GLUCOSE,RANDOM 128 mg/dL (74-106)
[2024-04-14 08:12] LABS: ANION GAP 7 mmol/L (4-13); CO2 27 mmol/L (21-32)
[2024-04-14 08:14] LABS: CREATININE 0.6 mg/dL (0.55-1.3); SGOT/AST 14 U/L (15-37); SGPT/ALT 13 U/L (13-61)
[2024-04-14 08:16] LABS: BILIRUBIN,TOTAL 0.3 mg/dL (0.2-1); TOT PROT 6.2 g/dl (6.4-8.2)
[2024-04-14 08:17] LABS: ALK PHOS 79 U/L (45-117)
[2024-04-14 08:23] LABS: BLOOD UREA NITROGEN 2.2 mg/dL (7-18)
[2024-04-15 10:43] LABS: BASO % 0.7 % (0-2.0); EOS % 3.8 % (0-4.5); HEMATOCRIT 31.4 % (35.4-49); HEMOGLOBIN 10.5 GM/dL (11.7-16.9); LYMPH % 27.5 % (8-40); MCHC 33.4 g/dl (32.0-35.9); MEAN CELL VOLUME 83.7 fl (80-96); MEAN PLT VOLUME 7.2 fl (7.5-11.1); MONO % 6.2 % (3.8-10.2); NEUT % 61.8 % (42.8-82.8); PLATELET COUNT 258 10^3/uL (134-434); RBC 3.75 M/mm3 (4.00-5.60); RDW 12.9 % (11.9-15.9); WHITE BLOOD COUNT 5.5 K/mm3 (4.0-10.0)
[2024-04-15 11:06] LABS: CHLORIDE 107 mmol/L (98-107); SODIUM 140 mmol/L (136-145)
[2024-04-15 11:21] LABS: CALCIUM 8.1 mg/dL (8.5-10.1)
[2024-04-15 11:22] LABS: ALBUMIN 2.7 g/dl (3.4-5.0); CO2 26 mmol/L (21-32); GLUCOSE,RANDOM 205 mg/dL (74-106); MAGNESIUM 1.8 mg/dL (1.8-2.4)
[2024-04-15 11:25] LABS: CREATININE 0.7 mg/dL (0.55-1.3); SGOT/AST 11 U/L (15-37); SGPT/ALT 15 U/L (13-61)
[2024-04-15 11:26] LABS: BILIRUBIN,TOTAL 0.3 mg/dL (0.2-1)
[2024-04-15 11:27] LABS: ALK PHOS 72 U/L (45-117); TOT PROT 5.5 g/dl (6.4-8.2)
[2024-04-15 11:31] LABS: ANION GAP 7 mmol/L (4-13); BLOOD UREA NITROGEN 2.2 mg/dL (7-18); POTASSIUM 2.7 mmol/L (3.5-5.1)
[2024-04-15] MEDS: KCL 10 MEQ IVPB 10 MEQ/100 ML INFUS.BAG IVPB SCH (12:54)
[2024-04-15] MEDS: POTASSIUM CHLORIDE ORAL LIQUID 20 MEQ/15 ML PO ONE (12:54)
[2024-04-16 09:01] LABS: BASO % 0.6 % (0-2.0); EOS % 5.2 % (0-4.5); HEMATOCRIT 34.5 % (35.4-49); HEMOGLOBIN 11.5 GM/dL (11.7-16.9); LYMPH % 37.9 % (8-40); MCH 27.9 pg (25.7-33.7); MCHC 33.4 g/dl (32.0-35.9); MEAN CELL VOLUME 83.5 fl (80-96); MEAN PLT VOLUME 7.1 fl (7.5-11.1); MONO % 7.8 % (3.8-10.2); NEUT % 48.5 % (42.8-82.8); PLATELET COUNT 282 10^3/uL (134-434); RBC 4.13 M/mm3 (4.00-5.60); RDW 13.3 % (11.9-15.9); WHITE BLOOD COUNT 5.5 K/mm3 (4.0-10.0)
[2024-04-16 09:14] LABS: CHLORIDE 108 mmol/L (98-107); POTASSIUM 3.4 mmol/L (3.5-5.1); SODIUM 142 mmol/L (136-145)
[2024-04-16 09:16] LABS: CALCIUM 8.5 mg/dL (8.5-10.1)
[2024-04-16 09:17] LABS: ANION GAP 8 mmol/L (4-13); CO2 27 mmol/L (21-32); GLUCOSE,RANDOM 252 mg/dL (74-106); MAGNESIUM 1.9 mg/dL (1.8-2.4)
[2024-04-16 09:20] LABS: CREATININE 0.9 mg/dL (0.55-1.3); PHOSPHOROUS 2.7 mg/dL (2.5-4.9); SGOT/AST 13 U/L (15-37); SGPT/ALT 14 U/L (13-61)
[2024-04-16 09:21] LABS: TOT PROT 6.3 g/dl (6.4-8.2)
[2024-04-16] MEDS: PANTOPRAZOLE 40 MG TABLET PO SCH (09:21)
[2024-04-16 09:22] LABS: BILIRUBIN,TOTAL 0.3 mg/dL (0.2-1)
[2024-04-16 09:24] LABS: ALK PHOS 79 U/L (45-117)
[2024-04-16 09:25] LABS: BLOOD UREA NITROGEN 1.7 mg/dL (7-18)
[2024-04-16 13:11] VITALS: BP 136/66; PULSE 76; TEMP 98.9
== END 2024-04-16 14:08 | disposition short-term general hospital (02) | DRG 375 ==
LOC: JER 23:13 → JERBED 04-08 09:20 → J6S 04-08 19:04
PROVIDERS: ADMIT Internal Medicine; ATTEND Internal Medicine
PROC: 0W3P8ZZ Control Bleeding in Gastrointestinal Tract, Via Natural or Artificial Opening Endoscopic (ICD-10-PCS; 2024-04-14)
PROC: 0DBP8ZX Excision of Rectum, Via Natural or Artificial Opening Endoscopic, Diagnostic (ICD-10-PCS; 2024-04-14)
PROC: 0DBE8ZX Excision of Large Intestine, Via Natural or Artificial Opening Endoscopic, Diagnostic (ICD-10-PCS; principal; 2024-04-14 11:00)
DX: C18.4 Malignant neoplasm of transverse colon (principal); D62 Acute posthemorrhagic anemia; K56.609 Unspecified intestinal obstruction, unspecified as to partial versus complete obstruction; K92.0 Hematemesis; E03.9 Hypothyroidism, unspecified; E11.9 Type 2 diabetes mellitus without complications; I10 Essential (primary) hypertension; D64.9 Anemia, unspecified; E78.5 Hyperlipidemia, unspecified; N40.0 Benign prostatic hyperplasia without lower urinary tract symptoms; E87.6 Hypokalemia; R19.7 Diarrhea, unspecified; K21.9 Gastro-esophageal reflux disease without esophagitis; K63.9 Disease of intestine, unspecified
CPT/HCPCS: 0241U-QW; 36415; 71045-TC-FY; 74019-TC-FY; 74177-TC; 80048; 80053; 81003; 82378; 82962; 83605; 83690; 83735; 84100; 84484; 85025; 85610; 85730; 86140; 86850; 86900; 86901; 87040; 87086; 87635; 88305-TC; 88341-TC; 93005; 93010; 93306-TC; 97116-GP; 97161-GP; 99285-25; J0131

== ENCOUNTER 2024-05-09 09:52 | Inpatient (IN) | payer OTHER ==
[2024-05-09 11:13] LABS: BASO % 1.1 % (0-2.0); EOS % 2.9 % (0-4.5); HEMOGLOBIN 11.4 GM/dL (11.7-16.9); LYMPH % 29.8 % (8-40); MCH 26.6 pg (25.7-33.7); MCHC 33.4 g/dl (32.0-35.9); MEAN CELL VOLUME 79.6 fl (80-96); MEAN PLT VOLUME 7.5 fl (7.5-11.1); MONO % 7.1 % (3.8-10.2); NEUT % 59.1 % (42.8-82.8); PLATELET COUNT 253 10^3/uL (134-434); RBC 4.27 M/mm3 (4.00-5.60); WHITE BLOOD COUNT 5.4 K/mm3 (4.0-10.0)
[2024-05-09 11:21] LABS: INR 0.96 (0.83-1.09); PROTHROMBIN TIME (PATIENT) 11.1 SEC (9.7-13.0)
[2024-05-09 11:28] LABS: ALBUMIN 3.4 g/dl (3.4-5.0); BLOOD UREA NITROGEN 8.8 mg/dL (7-18)
[2024-05-09 11:32] LABS: BILIRUBIN,TOTAL 0.4 mg/dL (0.2-1); TOT PROT 7.1 g/dl (6.4-8.2)
[2024-05-09] MEDS ORDERED: DONEPEZIL HCL 5 MG TABLET (FP) ONE (21:30)
[2024-05-09] MEDS ORDERED: ATORVASTATIN CA 10 MG TABLET (FP) ONE (21:30)
[2024-05-09] MEDS ORDERED: TAMSULOSIN HCL 0.4 MG CAP ONE (21:30)
[2024-05-09] MEDS ORDERED: HEPARIN NA (PORCINE) 5,000 UNITS/ML 1ML VIAL ONE (21:31)
[2024-05-09] MEDS: ATORVASTATIN CA 10 MG TABLET (FP) PO SCH (21:36)
[2024-05-09] MEDS: DONEPEZIL HCL 5 MG TABLET (FP) PO SCH (21:36)
[2024-05-09] MEDS: TAMSULOSIN HCL 0.4 MG CAP PO SCH (21:36)
[2024-05-09] MEDS: HEPARIN NA (PORCINE) 5,000 UNITS/ML 1ML VIAL SQ SCH (21:36)
[2024-05-10 08:02] LABS: BASO % 0.8 % (0-2.0); EOS % 3.7 % (0-4.5); HEMATOCRIT 34.4 % (35.4-49); HEMOGLOBIN 11.2 GM/dL (11.7-16.9); LYMPH % 35.5 % (8-40); MCH 26.5 pg (25.7-33.7); MCHC 32.6 g/dl (32.0-35.9); MEAN CELL VOLUME 81.1 fl (80-96); MEAN PLT VOLUME 7.8 fl (7.5-11.1); MONO % 9.4 % (3.8-10.2); NEUT % 50.6 % (42.8-82.8); PLATELET COUNT 231 10^3/uL (134-434); RBC 4.25 M/mm3 (4.00-5.60); RDW 12.7 % (11.9-15.9)
[2024-05-10 08:18] LABS: POTASSIUM 4.4 mmol/L (3.5-5.1)
[2024-05-10 08:22] LABS: CALCIUM 8.7 mg/dL (8.5-10.1)
[2024-05-10 08:26] LABS: CREATININE 0.8 mg/dL (0.55-1.3)
[2024-05-10] MEDS ORDERED: POLYETHYLENE GLYCOL 3350 255 GM BTL PO ONE (10:00)
[2024-05-10] MEDS ORDERED: HEPARIN NA (PORCINE) 5,000 UNITS/ML 1ML VIAL ONE (12:20)
[2024-05-10] MEDS ORDERED: ESCITALOPRAM OXALATE 10 MG TABLET ONE (12:20)
[2024-05-10] MEDS ORDERED: POTASSIUM CHLORIDE TABS 20 MEQ TABLET.ER (FP) PO ONE (12:20)
[2024-05-10] MEDS ORDERED: LEVOTHYROXINE NA 100 MCG TABLET (FP) ONE (12:20)
[2024-05-10] MEDS: POTASSIUM CHLORIDE TABS 20 MEQ TABLET.ER (FP) PO SCH (12:29)
[2024-05-10] MEDS: ESCITALOPRAM OXALATE 10 MG TABLET PO SCH (12:29)
[2024-05-10] MEDS: LEVOTHYROXINE NA 100 MCG TABLET (FP) PO SCH (12:29)
[2024-05-10] MEDS: POLYETHYLENE GLYCOL 3350 255 GM BTL PO ONE (12:30)
[2024-05-10] MEDS ORDERED: metroNIDAZOLE 250 MG TABLET ONE (14:55)
[2024-05-10] MEDS: metroNIDAZOLE 500 MG TABLET PO SCH ×2 (15:02→18:39)
[2024-05-10] MEDS: NEOMYCIN SO4 500 MG TABLET PO SCH ×2 (16:14→18:39)
[2024-05-10] MEDS: BISACODYL 5 MG TABLET.DR (FP) PO ONE (16:14)
[2024-05-10] MEDS: INSULIN ASPART SLIDING SCALE (NOVOLOG) 1 VIAL SQ SCH (18:40)
[2024-05-10] MEDS ORDERED: INSULIN ASPART SLIDING SCALE (NOVOLOG) 1 VIAL SQ ONE (18:41)
[2024-05-10 22:17] VITALS: BMI 20.7
[2024-05-11] MEDS ORDERED: HEPARIN NA (PORCINE) 5,000 UNITS/ML 1ML VIAL ONE (07:04)
[2024-05-11] MEDS ORDERED: BUPIVACAINE HCL/PF 0.25% (2.5MG/ML) 10 ML VIAL ONE (07:04)
[2024-05-11] MEDS ORDERED: PROPOFOL 20 ML ONE (07:47)
[2024-05-11] MEDS ORDERED: SEVOFLURANE 250 ML BTL ONE (07:47)
[2024-05-11] MEDS ORDERED: METOCLOPRAMIDE HCL INJECTION 10 MG/2 ML VIAL ONE (07:48)
[2024-05-11] MEDS ORDERED: ONDANSETRON 4 MG/2 ML VIAL ONE (07:48)
[2024-05-11] MEDS ORDERED: DEXAMETHASONE SOD PHOSPHATE 4 MG/1 ML VIAL ONE (07:48)
[2024-05-11] MEDS ORDERED: LIDOCAINE HCL/PF 2% SDV 5ML VIAL ONE (07:48)
[2024-05-11] MEDS ORDERED: ROCURONIUM BROMIDE 50 MG/5 ML SYRINGE ONE ×2 (07:51→09:57)
[2024-05-11] MEDS ORDERED: SUGAMMADEX SODIUM 200 MG/2 ML VIAL ONE (07:51)
[2024-05-11] MEDS ORDERED: HYDROmorphone HCl 2 MG/ML VIAL ONE (07:51)
[2024-05-11] MEDS ORDERED: MIDAZOLAM HCL 2 MG/2 ML SINGLE DOSE VIAL ONE (07:51)
[2024-05-11] MEDS ORDERED: ONDANSETRON 4 MG/2 ML VIAL IVPUSH PRN ×3 (08:02→11:33)
[2024-05-11] MEDS ORDERED: LACTATED RINGERS SOLUTION 1,000 ML IV SCH (08:15)
[2024-05-11] MEDS: cefOXitin SODIUM 1 GM VIAL (RESTRICTED TO ID) IVPB ONE (08:44)
[2024-05-11] MEDS: BUPIVACAINE HCL/PF 0.25% (2.5MG/ML) 10 ML VIAL IJ ONE ×2 (08:49→08:54)
[2024-05-11] MEDS ORDERED: ACETAMINOPHEN INJECTION 100 ML IVPB ONE (09:28)
[2024-05-11] MEDS ORDERED: BACITRACIN ZINC 15 GM TUBE TOPICAL OINTMENT ONE (10:38)
[2024-05-11] MEDS: BACITRACIN ZINC 15 GM TUBE TOPICAL OINTMENT TP ONE (10:40)
[2024-05-11] MEDS ORDERED: KETOROLAC TROMETHAMINE 15 MG/ML VIAL IVPUSH PRN (11:23)
[2024-05-11 13:52] LABS: BASO % 0.2 % (0-2.0); EOS % 0.1 % (0-4.5); HEMATOCRIT 33.2 % (35.4-49); HEMOGLOBIN 10.8 GM/dL (11.7-16.9); LYMPH % 5.5 % (8-40); MCH 26.5 pg (25.7-33.7); MCHC 32.5 g/dl (32.0-35.9); MEAN CELL VOLUME 81.6 fl (80-96); MEAN PLT VOLUME 7.8 fl (7.5-11.1); MONO % 3.4 % (3.8-10.2); NEUT % 90.8 % (42.8-82.8); PLATELET COUNT 221 10^3/uL (134-434); RBC 4.06 M/mm3 (4.00-5.60); RDW 13.1 % (11.9-15.9); WHITE BLOOD COUNT 11.2 K/mm3 (4.0-10.0)
[2024-05-11 13:53] LABS: INR 0.98 (0.83-1.09); PROTHROMBIN TIME (PATIENT) 11.3 SEC (9.7-13.0)
[2024-05-11 13:56] LABS: ACTIVATED PTT 38.9 SECONDS (25.2-36.5)
[2024-05-11 14:06] LABS: POTASSIUM 4.2 mmol/L (3.5-5.1)
[2024-05-11 14:08] LABS: BLOOD UREA NITROGEN 9.5 mg/dL (7-18); CALCIUM 8.5 mg/dL (8.5-10.1)
[2024-05-11 14:09] LABS: MAGNESIUM 1.7 mg/dL (1.8-2.4)
[2024-05-11 14:12] LABS: PHOSPHOROUS 4.2 mg/dL (2.5-4.9)
[2024-05-11 14:13] LABS: BILIRUBIN,TOTAL 0.3 mg/dL (0.2-1); CREATININE 0.9 mg/dL (0.55-1.3); TOT PROT 5.9 g/dl (6.4-8.2)
[2024-05-11] MEDS: LACTATED RINGERS SOLUTION 1,000 ML IV SCH (14:21)
[2024-05-11] MEDS: ACETAMINOPHEN 1000 MG/100 ML BAG IVPB SCH (17:27)
[2024-05-11] MEDS: INSULIN ASPART SLIDING SCALE (NOVOLOG) 1 VIAL SQ SCH (17:34)
[2024-05-11] MEDS: HYDROmorphone *PCA* 10MG/50ML DISP.SYRIN PCA SCH (19:59)
[2024-05-11] MEDS: ATORVASTATIN CA 10 MG TABLET (FP) PO SCH (22:20)
[2024-05-11] MEDS: DONEPEZIL HCL 5 MG TABLET (FP) PO SCH (22:20)
[2024-05-11] MEDS: TAMSULOSIN HCL 0.4 MG CAP PO SCH (22:21)
[2024-05-12] MEDS: LEVOTHYROXINE NA 100 MCG TABLET (FP) PO SCH (06:24)
[2024-05-12] MEDS: POTASSIUM CHLORIDE TABS 20 MEQ TABLET.ER (FP) PO SCH (09:19)
[2024-05-12] MEDS: ENOXAPARIN NA (PORCINE) 40 MG/0.4 ML DISP.SYRIN SQ SCH (09:20)
[2024-05-12] MEDS: ESCITALOPRAM OXALATE 10 MG TABLET PO SCH (09:20)
[2024-05-12 09:41] LABS: BASO % 0.2 % (0-2.0); HEMATOCRIT 31.9 % (35.4-49); HEMOGLOBIN 10.6 GM/dL (11.7-16.9); LYMPH % 12.9 % (8-40); MCH 26.3 pg (25.7-33.7); MCHC 33.1 g/dl (32.0-35.9); MEAN CELL VOLUME 79.6 fl (80-96); MONO % 4.6 % (3.8-10.2); NEUT % 82.3 % (42.8-82.8); PLATELET COUNT 239 10^3/uL (134-434); RBC 4.01 M/mm3 (4.00-5.60); RDW 12.8 % (11.9-15.9); WHITE BLOOD COUNT 12.7 K/mm3 (4.0-10.0)
[2024-05-12 10:00] LABS: POTASSIUM 4.2 mmol/L (3.5-5.1)
[2024-05-12 10:16] LABS: CALCIUM 8.8 mg/dL (8.5-10.1)
[2024-05-12 10:17] LABS: BLOOD UREA NITROGEN 7.2 mg/dL (7-18)
[2024-05-12 10:20] LABS: CREATININE 0.8 mg/dL (0.55-1.3)
[2024-05-12] MEDS: ACETAMINOPHEN 500 MG TABLET (FP) PO SCH (11:28)
[2024-05-12] MEDS ORDERED: INSULIN ASPART SLIDING SCALE (NOVOLOG) 1 VIAL SQ ONE (11:50)
[2024-05-12] MEDS: oxyCODONE HCL 5 MG TABLET PO PRN (13:27)
[2024-05-13 08:12] LABS: BASO % 0.3 % (0-2.0); EOS % 1.4 % (0-4.5); HEMATOCRIT 31.8 % (35.4-49); HEMOGLOBIN 10.3 GM/dL (11.7-16.9); LYMPH % 22.6 % (8-40); MCH 26.2 pg (25.7-33.7); MCHC 32.5 g/dl (32.0-35.9); MEAN CELL VOLUME 80.7 fl (80-96); MONO % 6.6 % (3.8-10.2); NEUT % 69.1 % (42.8-82.8); PLATELET COUNT 222 10^3/uL (134-434); RBC 3.94 M/mm3 (4.00-5.60); WHITE BLOOD COUNT 7.6 K/mm3 (4.0-10.0)
[2024-05-13 08:19] LABS: POTASSIUM 3.9 mmol/L (3.5-5.1)
[2024-05-13 08:21] LABS: CALCIUM 8.7 mg/dL (8.5-10.1)
[2024-05-13 08:23] LABS: ALBUMIN 2.8 g/dl (3.4-5.0); BLOOD UREA NITROGEN 3.8 mg/dL (7-18)
[2024-05-13 08:24] LABS: MAGNESIUM 1.7 mg/dL (1.8-2.4)
[2024-05-13 08:26] LABS: CREATININE 0.7 mg/dL (0.55-1.3)
[2024-05-13 08:27] LABS: BILIRUBIN,TOTAL 0.4 mg/dL (0.2-1); TOT PROT 5.6 g/dl (6.4-8.2)
[2024-05-13 08:47] LABS: PH,URINE 6.5 (5.0-8.0); URINE APPEARANCE CLEAR; URINE BILIRUBIN NEGATIVE (NEGATIVE); URINE COLOR YELLOW; URINE GLUCOSE (UA) NEGATIVE (NEGATIVE); URINE KETONE NEGATIVE (NEGATIVE); URINE LEUK ESTERASE NEGATIVE (NEGATIVE); URINE NITRITE NEGATIVE (NEGATIVE); URINE PROTEIN NEGATIVE (NEGATIVE); URINE UROBILINOGEN 0.2 mg/dL (0.2-1.0)
[2024-05-13] MEDS: MAGNESIUM SULFATE IN WATER 2 GM/50 ML IVPB IVPB ONE (10:25)
[2024-05-14 08:02] LABS: POTASSIUM 3.9 mmol/L (3.5-5.1)
[2024-05-14 08:04] LABS: BASO % 0.5 % (0-2.0); EOS % 4.3 % (0-4.5); HEMATOCRIT 31.5 % (35.4-49); HEMOGLOBIN 10.4 GM/dL (11.7-16.9); LYMPH % 31.6 % (8-40); MCH 26.5 pg (25.7-33.7); MCHC 33.1 g/dl (32.0-35.9); MEAN CELL VOLUME 79.9 fl (80-96); MEAN PLT VOLUME 7.8 fl (7.5-11.1); MONO % 8.4 % (3.8-10.2); NEUT % 55.2 % (42.8-82.8); PLATELET COUNT 223 10^3/uL (134-434); RBC 3.95 M/mm3 (4.00-5.60); RDW 12.8 % (11.9-15.9); WHITE BLOOD COUNT 4.9 K/mm3 (4.0-10.0)
[2024-05-14 08:08] LABS: ALBUMIN 2.7 g/dl (3.4-5.0); CALCIUM 8.6 mg/dL (8.5-10.1); MAGNESIUM 2.1 mg/dL (1.8-2.4)
[2024-05-14 08:09] LABS: BLOOD UREA NITROGEN 4.2 mg/dL (7-18)
[2024-05-14 08:10] LABS: CREATININE 0.7 mg/dL (0.55-1.3)
[2024-05-14 08:12] LABS: BILIRUBIN,TOTAL 0.4 mg/dL (0.2-1); TOT PROT 5.5 g/dl (6.4-8.2)
[2024-05-14 09:31] VITALS: RESP 18
[2024-05-14] MEDS ORDERED: INSULIN ASPART SLIDING SCALE (NOVOLOG) 1 VIAL SQ ONE (12:35)
[2024-05-14 14:24] VITALS: BP 137/53; PULSE 85; TEMP 98.4
== END 2024-05-14 17:07 | DRG 331 ==
LOC: JER 09:52 → JERBED 13:19 → J5S 05-10 21:31 → J2C 05-11 13:31 → J8W 05-11 14:13
PROVIDERS: ADMIT Internal Medicine; ATTEND Nurse Practitioner Acute Care
PROC: 0DTF0ZZ Resection of Right Large Intestine, Open Approach (ICD-10-PCS; principal; 2024-05-11 08:00)
DX: C18.2 Malignant neoplasm of ascending colon (principal); Z53.31 Laparoscopic surgical procedure converted to open procedure; I10 Essential (primary) hypertension; E78.5 Hyperlipidemia, unspecified; E11.9 Type 2 diabetes mellitus without complications; E03.9 Hypothyroidism, unspecified; K64.8 Other hemorrhoids; N40.0 Benign prostatic hyperplasia without lower urinary tract symptoms; K21.9 Gastro-esophageal reflux disease without esophagitis; F03.90 Unspecified dementia, unspecified severity, without behavioral disturbance, psychotic disturbance, mood disturbance, and anxiety; F41.8 Other specified anxiety disorders; Z85.46 Personal history of malignant neoplasm of prostate
CPT/HCPCS: 36415; 71046-TC-FY; 80048; 80053; 81003; 82962; 83735; 84100; 85025; 85610; 85730; 86140; 86850; 86900; 86901; 87635; 88309-TC; 88329; 93005; 93010; 94760; 97116-GP; 97161-GP; 99285-25; J0131; J1644